=== PATIENT | female | born 1980 | race Caucasian/White ===

== ENCOUNTER 2021-10-20 20:39 | Inpatient (IN) | payer OTHER ==
[~2021-10-20] VITALS: Ht 172.7 cm; Wt 60.6 kg
[2021-10-20 21:15] LABS: Hematocrit 39.6 % (33.0-51.0); Hemoglobin 13.8 g/dL (11.5-16.0); Mean Corpuscular HGB Conc 34.8 g/dL (31.5-36.5); Mean Corpuscular Volume 89 fL (80-100); Mean Platelet Volume 12.6 fL (9.1-12.4); Platelet Count 199 K/mm3 (150-400); RDW Coefficient Variation 12.3 % (11.7-14.2); RDW Standard Deviation 40.1 fL (35.1-46.3); Red Blood Cell Count 4.45 M/mm3 (3.80-5.20)
[2021-10-20 21:17] LABS: BASOPHILS ABSOLUTE AUTO 0.15 K/mm3 (0.00-0.23); BASOPHILS PERCENT AUTO 1 % (0-2); EOSINOPHILS ABSOLUTE AUTO 0.68 K/mm3 (0.00-0.68); EOSINOPHILS PERCENT AUTO 5 % (0-6); IMMATURE GRAN ABSOLUTE AUTO 0.05 K/mm3 (0.00-0.10); IMMATURE GRAN PERCENT AUTO 0 % (0-1); LYMPHOCYTES ABSOLUTE AUTO 2.55 K/mm3 (0.84-5.20); LYMPHOCYTES PERCENT AUTO 19 % (21-46); MONOCYTES ABSOLUTE AUTO 0.63 K/mm3 (0.16-1.47); MONOCYTES PERCENT AUTO 5 % (4-13); NEUTROPHILS ABSOLUTE AUTO 9.12 K/mm3 (1.96-9.15); NEUTROPHILS PERCENT AUTO 69 % (41-73); White Blood Cell Count 13.18 K/mm3 (4.00-11.30)
[2021-10-20 21:34] LABS: Alanine Aminotransfer (ALT/SGP 20 U/L (12-78); Albumin, Blood 4.3 g/dL (3.4-5.0); Albumin/Globulin Ratio 1.2 (0.8-1.8); Alk Phos 78 U/L (50-136); Anion Gap 10 mmol/L (6-16); Aspartate Aminotrans (AST/SGOT 20 U/L (12-37); Bilirubin, Total 0.8 mg/dL (0.1-1.0); Blood Urea Nitrogen 7 mg/dL (8-24); Bun/Creatinine Ratio 10.6 (12.0-20.0); CO2, Blood 22 mmol/L (21-32); Calcium, Blood 9.3 mg/dL (8.5-10.1); Chloride, Blood 100 mmol/L (98-108); Creatinine, Blood 0.66 mg/dL (0.40-1.00); Globulin, Blood 3.6 g/dL (2.2-4.0); Glomerular Filtration Rate >60 (60-); Glucose, Blood 98 mg/dL (70-99); Potassium, Blood 3.6 mmol/L (3.5-5.5); Sodium, Blood 132 mmol/L (136-145); Total Protein, Blood 7.9 g/dL (6.4-8.2)
--- NOTE | 2021-10-21 01:37 | NUR ---
ADMISSION: PATIENT IS RECIEVED FROM ER VIA STRETCHER. ABLE TO AMBULATE WITH STEADY GAIT TO THE BED FROM THE HOLDEN. PATIENT IS ORIENTED TO ROOM AND CALL ALEMAN. BP CONTINUES TO BE ELEVATED, PATIENT IS ASYMPTOMATIC.
--- NOTE | 2021-10-21 02:03 | NUR ---
ADMISSION: DR TRINIDAD IS AT BEDSIDE TO EVALUATE PATIENT. MD IS UPDATED ON CONTINUED HYPERTENTION.
[2021-10-21 05:02] LABS: BASOPHILS ABSOLUTE AUTO 0.12 K/mm3 (0.00-0.23); BASOPHILS PERCENT AUTO 1 % (0-2); EOSINOPHILS ABSOLUTE AUTO 0.17 K/mm3 (0.00-0.68); EOSINOPHILS PERCENT AUTO 2 % (0-6); Hematocrit 38.3 % (33.0-51.0); Hemoglobin 13.2 g/dL (11.5-16.0); IMMATURE GRAN ABSOLUTE AUTO 0.04 K/mm3 (0.00-0.10); IMMATURE GRAN PERCENT AUTO 0 % (0-1); LYMPHOCYTES ABSOLUTE AUTO 2.15 K/mm3 (0.84-5.20); LYMPHOCYTES PERCENT AUTO 20 % (21-46); MONOCYTES ABSOLUTE AUTO 0.77 K/mm3 (0.16-1.47); MONOCYTES PERCENT AUTO 7 % (4-13); Mean Corpuscular HGB 30.8 pg (26.0-34.0); Mean Corpuscular HGB Conc 34.5 g/dL (31.5-36.5); Mean Corpuscular Volume 89 fL (80-100); Mean Platelet Volume 12.8 fL (9.1-12.4); NEUTROPHILS ABSOLUTE AUTO 7.46 K/mm3 (1.96-9.15); NEUTROPHILS PERCENT AUTO 70 % (41-73); Platelet Count 186 K/mm3 (150-400); RDW Coefficient Variation 12.2 % (11.7-14.2); RDW Standard Deviation 40.2 fL (35.1-46.3); Red Blood Cell Count 4.29 M/mm3 (3.80-5.20); White Blood Cell Count 10.71 K/mm3 (4.00-11.30)
[2021-10-21 05:33] LABS: Anion Gap 8 mmol/L (6-16); Blood Urea Nitrogen 9 mg/dL (8-24); CO2, Blood 26 mmol/L (21-32); Calcium, Blood 9.2 mg/dL (8.5-10.1); Chloride, Blood 102 mmol/L (98-108); Creatinine, Blood 0.75 mg/dL (0.40-1.00); Glomerular Filtration Rate >60 (60-); Glucose, Blood 102 mg/dL (70-99); Potassium, Blood 3.3 mmol/L (3.5-5.5); Sodium, Blood 136 mmol/L (136-145)
--- NOTE | 2021-10-21 07:59 | NUR ---
KWAME mckeon handoff of patient care from KWAME Thomas Patient was asleep in bed and did not appear to be in distress
--- NOTE | 2021-10-21 11:59 | NUR ---
Patient c/o cramps in her feet that extends to her calves. She stated that when she stretches out her toes, it feels very crampy. RN informed provider and she stated to give the prn Tylenol and to monitor the cramps.
--- NOTE | 2021-10-21 17:10 | NUR ---
Patient was alert and orient.SHe spent most of the shift in the room and in the bed. Patient complained of headache primarily because blood pressure was extremely high. Patient recvd blood pressure meds and headache went away. However she did complain of cramping in feet/legs. Provider was informed. SHe was given Tylenol and said that it felt better. She was inquiring on discharge, RN informed the provider and he stated that he was still waiting on final images/test before discharging her. RN informed patient.
--- NOTE | 2021-10-22 04:42 | NUR ---
CARDIOLOGY: PATIENT HAS BEEN BRADICARDIC ALL SHIFT 44-57. DR PAYNE WAS NOTIFIED WHEN THERE WAS A DROP TO 44 OBSERVED. NO NEW ORDERS, CONTINUE TO MONITOR. LATER IN SHIFT IT WAS OBSERVED THAT THEIR WAS AN OCCASSIONAL DROP OF THE P WAVE ALONG WITH BRADICARDIA. ANOTHER CALL WAS PLACE TO DR PAYNE EKG WAS ORDERED.
--- NOTE | 2021-10-22 05:24 | NUR ---
SHIFT SUMMARY: PERSISTANT BRADICARDIA THROUGH THE SHIFT. PATIENT IS ASYMPTOMATIC. EKG SHOWS SB WITH PAC'S RATE OF 52. PATIENT REPORTED FOOT AND LEG CRAMPS, TYLENOL WAS GIVEN WITH GOOD EFFECT.
[2021-10-22 07:00] LABS: BASOPHILS PERCENT AUTO 1 % (0-2); EOSINOPHILS ABSOLUTE AUTO 0.62 K/mm3 (0.00-0.68); EOSINOPHILS PERCENT AUTO 9 % (0-6); Hematocrit 38.2 % (33.0-51.0); Hemoglobin 13.2 g/dL (11.5-16.0); IMMATURE GRAN ABSOLUTE AUTO 0.02 K/mm3 (0.00-0.10); IMMATURE GRAN PERCENT AUTO 0 % (0-1); LYMPHOCYTES ABSOLUTE AUTO 2.06 K/mm3 (0.84-5.20); LYMPHOCYTES PERCENT AUTO 29 % (21-46); MONOCYTES ABSOLUTE AUTO 0.82 K/mm3 (0.16-1.47); MONOCYTES PERCENT AUTO 11 % (4-13); Mean Corpuscular HGB 31.3 pg (26.0-34.0); Mean Corpuscular HGB Conc 34.6 g/dL (31.5-36.5); Mean Corpuscular Volume 91 fL (80-100); Mean Platelet Volume 12.8 fL (9.1-12.4); NEUTROPHILS ABSOLUTE AUTO 3.56 K/mm3 (1.96-9.15); NEUTROPHILS PERCENT AUTO 50 % (41-73); Platelet Count 184 K/mm3 (150-400); RDW Coefficient Variation 12.6 % (11.7-14.2); RDW Standard Deviation 41.2 fL (35.1-46.3); Red Blood Cell Count 4.22 M/mm3 (3.80-5.20); White Blood Cell Count 7.18 K/mm3 (4.00-11.30)
[2021-10-22 07:18] LABS: Albumin, Blood 3.5 g/dL (3.4-5.0); Albumin/Globulin Ratio 1.1 (0.8-1.8); Bilirubin, Total 1.4 mg/dL (0.1-1.0); Bun/Creatinine Ratio 17.1 (12.0-20.0); Calcium, Blood 8.9 mg/dL (8.5-10.1); Creatinine, Blood 1.05 mg/dL (0.40-1.00); Globulin, Blood 3.3 g/dL (2.2-4.0); Potassium, Blood 3.4 mmol/L (3.5-5.5); Total Protein, Blood 6.8 g/dL (6.4-8.2)
--- NOTE | 2021-10-22 07:41 | NUR ---
KWAME mckeon handoff of patient care from KWAME Thomas Patient was in bed asleep and she did not appear to be in any distress
[2021-10-22] MEDS ORDERED: LISI20 PO (09:06)
[2021-10-22] MEDS ORDERED: FURO20 PO (09:06)
[2021-10-22] MEDS ORDERED: NICO21TP TOP (09:06)
--- NOTE | 2021-10-22 10:30 | NUR ---
Patient was alert and orient, she will be discharged to home today. She slept well last night. Patient was compliant with taking medications, requested no prns. She is waiting on friend to pick her from the facility.
--- NOTE | 2021-10-22 11:36 | NUR ---
Patient was discharged from the unit at 11am. She as accompanied by staff in w/c. Patient's friend came to pick her up. Patient was alert and appropriate for discharge. RN reviewed with patient her discharge instructions and medications. Patient was receptive to the information. Her cont pulse ox and PIV was discontinued
== END 2021-10-22 11:15 | disposition home or self-care (01) | DRG 291 ==
LOC: ER 20:39 → MEDS 20:40
PROVIDERS: Physician Assistant; Student in an Organized Health Care Education/Training Program; ADMIT Internal Medicine
PROC: HZ2ZZZZ Detoxification Services for Substance Abuse Treatment (ICD-10-PCS; principal; 2021-10-21)
DX: I11.0 Hypertensive heart disease with heart failure (principal); I50.31 Acute diastolic (congestive) heart failure; I16.1 Hypertensive emergency; E87.1 Hypo-osmolality and hyponatremia; F10.10 Alcohol abuse, uncomplicated; E87.6 Hypokalemia; Z53.29 Procedure and treatment not carried out because of patient's decision for other reasons; D72.829 Elevated white blood cell count, unspecified; Z91.14 Patient's other noncompliance with medication regimen; F17.210 Nicotine dependence, cigarettes, uncomplicated; Z71.6 Tobacco abuse counseling; Z98.891 History of uterine scar from previous surgery; Z71.41 Alcohol abuse counseling and surveillance of alcoholic
CPT/HCPCS: 36415; 71045; 80048; 80053; 83735; 83880; 84443; 84484; 85025; 93005; 93010; 93306; 96374; 96375; 99285-25; A9270; G0378; J0360; J1650; J1940